=== PATIENT | male | born 1990 | race African-American/Black ===

== ENCOUNTER 2016-10-06 11:32 | Emergency (ER) | payer OTHER ==
--- NOTE | ~2016-10-06 | CT71 ---
[facility] RADIOLOGY TEXT RESULTS PATIENT: TENA ESCAMILLA LOCATION: [facility] : [birth year] UNIT #: [id number] AGE: [address]: Abel Bowie MD SEX: M ORDER DR: [id number] [facility] [address] [place], [place] [address] [id number] MR#: [id number] Acc #: [id number] NAME: TENA ESCAMILLA : 1990 SEX: M STUDY DATE/TIME: 10/06/2016 12:42 UNIT: [facility] ROOM: STUDY DESCRIPTION: CT Head Wo Contrast Attending Physician: Abel Bowie M.D. Ordering Physician: Abel Bowie M.D. Primary Care Physician: Primary Care Physician No MEDICAL IMAGING REPORT This report is preliminary unless electronic signature is present EXAM CT scan of the head without contrast INDICATION Headache since yesterday. Light sensitivity, blurry vision, occipital area pain. This CT exam was performed with one or more of the following radiation dose reduction techniques: automatic exposure control, adjustment of mA and/or kV according to patient size, and iterative reconstruction. FINDINGS Axial noncontrast images were obtained from the skull base to the vertex. Ventricular size and configuration are normal. There is no evidence of acute infarct or hemorrhage. There are no extra-axial fluid collections. No mass lesion or mass effect is seen. There are no skull fractures. IMPRESSION Normal noncontrast head CT. Dictated by... Eliu Bean M.D. THIS IS AN ELECTRONICALLY VERIFIED REPORT Eliu Bean M.D. at 10/07/2016 7:27 AM ANNA/moo TD: 10/06/2016 21:43 JOB #: [id number] MEDICAL IMAGING REPORT [facility] Service [facility] RADIOLOGY TEXT RESULTS PATIENT: TENA ESCAMILLA LOCATION: [facility] : [birth year] UNIT #: [id number] AGE: [address]: Abel Bowie MD SEX: M ORDER DR: Page 1 of 1 COPY
== END 2016-10-06 14:02 | disposition home or self-care (01) ==
LOC: CED 11:32
DX: R51 Headache (principal)
CPT/HCPCS: 70450; 96361; 96374; 96375; 99284; J0780; J1200; J1885